=== PATIENT | female | born 1995 | race Caucasian/White ===

== ENCOUNTER 2021-07-13 21:06 | Emergency (ER) | payer OTHER ==
[2021-07-13 21:18] VITALS: BP 137/88; BMI 25.0
[2021-07-13] MEDS ORDERED: SODIUM CHLORIDE 1,000 ML IV STA (21:18)
[2021-07-13] MEDS ORDERED: ACETAMINOPHEN 1000 MG/100 ML BAG IVPB ONE (21:18)
[2021-07-13] MEDS ORDERED: ACETAMINOPHEN INJECTION 100 ML IVPB ONE (21:33)
[2021-07-13 21:54] LABS: HEMATOCRIT 40.8 % (32.4-45.2); HEMOGLOBIN 14.3 G/dL (10.7-15.3); MCH 32.4 pg (25.7-33.7); MEAN CELL VOLUME 92.5 fl (80-96); MEAN PLT VOLUME 9.3 fl (7.5-11.1); PLATELET COUNT 188.7 10^3/uL (134-434); RBC 4.41 10^6/uL (3.60-5.2); RDW 13.5 % (11.6-15.6); WHITE BLOOD COUNT 6.6 10^3/uL (4.0-10.8)
[2021-07-13 22:00] LABS: ALBUMIN 3.9 g/dl (3.4-5.0); BILIRUBIN,TOTAL 0.5 mg/dl (0.2-1); CALCIUM 9.2 mg/dl (8.5-10); TOT PROT 7.1 g/dl (6.4-8.2)
[2021-07-13 22:07] LABS: ANISOCYTOSIS FEW; PLATELET ESTIMATE ADEQUATE
[2021-07-13 22:30] VITALS: PULSE 88; TEMP 98.9
[2021-07-15 15:08] LABS: SARS-CoV-2 NAA Not Detected (Not Detected)
== END 2021-07-13 22:33 | disposition home or self-care (01) ==
LOC: FER 21:06
PROC: 3E033NZ Introduction of Analgesics, Hypnotics, Sedatives into Peripheral Vein, Percutaneous Approach (ICD-10-PCS; principal; 2021-07-13)
PROC: 3E0337Z Introduction of Electrolytic and Water Balance Substance into Peripheral Vein, Percutaneous Approach (ICD-10-PCS; 2021-07-13)
DX: R19.7 Diarrhea, unspecified (principal); R10.9 Unspecified abdominal pain
CPT/HCPCS: 36415; 80053; 84703; 85027; 99284-25; C9803-CS; U0003; U0005

== ENCOUNTER 2023-11-28 10:46 | Emergency (ER) | payer OTHER ==
[2023-11-28 11:17] VITALS: BP 140/74; PULSE 94; RESP 20; TEMP 98.3; BMI 22.8
[2023-11-28] MEDS ORDERED: IBUPROFEN 600 MG TABLET (FP) PO ONE (11:18)
[2023-11-28] MEDS: IBUPROFEN 600 MG TABLET (FP) PO ONE (11:23)
== END 2023-11-28 11:33 | disposition home or self-care (01) ==
LOC: FER 10:46
DX: S83.91XA Sprain of unspecified site of right knee, initial encounter (principal); X50.1XXA Overexertion from prolonged static or awkward postures, initial encounter
CPT/HCPCS: 73562-TC-RT-FY; 99283-25

== ENCOUNTER 2023-12-14 09:56 | Day surgery (SDC) | payer OTHER ==
[2023-12-12 13:22] VITALS: BMI 23.6
[2023-12-14] MEDS ORDERED: BUPIVACAINE HCL/EPINEPHRINE/PF 30 ML VIAL IJ ONE (10:32)
[2023-12-14] MEDS ORDERED: MIDAZOLAM HCL 2 MG/2 ML SINGLE DOSE VIAL ONE (12:11)
[2023-12-14] MEDS ORDERED: PROPOFOL 20 ML ONE (12:48)
[2023-12-14] MEDS ORDERED: DEXAMETHASONE SOD PHOSPHATE 4 MG/1 ML VIAL ONE (13:10)
[2023-12-14] MEDS ORDERED: KETOROLAC TROMETHAMINE 30 MG/1 ML VIAL ONE (13:10)
[2023-12-14] MEDS ORDERED: ceFAZolin SODIUM 1 GM VIAL ONE (13:10)
[2023-12-14] MEDS ORDERED: ONDANSETRON 4 MG/2 ML VIAL ONE (13:10)
[2023-12-14] MEDS ORDERED: ONDANSETRON 4 MG/2 ML VIAL IVPUSH PRN (14:03)
[2023-12-14] MEDS ORDERED: oxyCODONE HCL 5 MG TABLET PO PRN (14:03)
[2023-12-14] MEDS ORDERED: LACTATED RINGERS SOLUTION 1,000 ML IV SCH (14:15)
[2023-12-14] MEDS: ACETAMINOPHEN 1000 MG/100 ML BAG IVPB ONE (14:30)
[2023-12-14] MEDS ORDERED: FENTANYL CITRATE/PF 50 MCG/ML VIAL ONE (14:42)
[2023-12-14 14:58] VITALS: BP 126/74
[2023-12-14 15:20] VITALS: PULSE 78; RESP 16; TEMP 97.4
== END 2023-12-14 15:43 | disposition home or self-care (01) ==
LOC: FASU 09:56
PROVIDERS: ATTEND Orthopaedic Surgery
PROC: 0SQC4ZZ Repair Right Knee Joint, Percutaneous Endoscopic Approach (ICD-10-PCS; principal; 2023-12-14 13:14)
DX: S83.281A Other tear of lateral meniscus, current injury, right knee, initial encounter (principal); X58.XXXA Exposure to other specified factors, initial encounter; Y92.9 Unspecified place or not applicable; Y93.9 Activity, unspecified
CPT/HCPCS: 81025; 94760; J0131